=== PATIENT | male | born 1985 | race Caucasian/White ===

== ENCOUNTER 2020-07-30 02:56 | Outpatient (CLI) | payer OTHER, SELFPAY ==
[2020-08-01 13:27] LABS: Syphilis Total Ab w/Reflex Nonreactive (Nonreactive)
[2020-08-01 15:07] LABS: HIV-1/2 Ag & Ab Screen Negative (Negative)
[2020-08-02 07:28] LABS: Chlamydia amplified RNA Negative (Negative); N gonorrhoeae amplified RNA Negative (Negative); Source URINE
[2020-08-14 14:59] LABS: Hepatitis B Surface Ag Negative (Negative); Hepatitis C Ab w Rflx HCV PCR Negative (Negative)
== END 2020-07-30 03:16 ==
PROVIDERS: PCP Nurse Practitioner Family; Visit Provider Obstetrics & Gynecology Reproductive Endocrinology
DX: Z11.3 Encounter for screening for infections with a predominantly sexual mode of transmission (principal)
CPT/HCPCS: 36415; 86803; 87340; 87389; 87491; 87591; 86592; 86704; 86780

== ENCOUNTER 2020-08-18 10:21 | Outpatient (CLI) | payer OTHER, SELFPAY ==
[2020-08-19 23:27] LABS: COVID-19 RT-PCR Result NEGATIVE (Negative)
== END 2020-08-18 10:41 ==
PROVIDERS: PCP Nurse Practitioner Family; Visit Provider Obstetrics & Gynecology Reproductive Endocrinology
DX: Z11.59 Encounter for screening for other viral diseases (principal); Z01.818 Encounter for other preprocedural examination
CPT/HCPCS: U0003

== ENCOUNTER 2025-04-15 20:18 | Emergency (ER) | payer BC, SELFPAY ==
[2025-04-15 20:35] VITALS: BP 155/87; PULSE 70; RESP 16; TEMP 37; O2SAT 95
--- NOTE | 2025-04-15 21:07 | DI.RAD_ITS ---
Exam(s) XR KNEE LT 4V AP,LAT,JOHNNY,PAT EXAM: XR KNEE LT 4V AP,LAT,JOHNNY,PAT CLINICAL HISTORY: L knee pain, lateral. TECHNIQUE: 2D digital imaging was performed of the left knee. Four images were obtained. Merchant,AP, lateral and PA tunnel views were obtained. COMPARISON: There are no priors for comparison. FINDINGS: BONES: No acute fracture is present. No bony destructive lesion is seen. JOINTS: The knee is normally aligned. There is a small joint effusion. No loose body. SOFT TISSUE: Normal. IMPRESSION: 1. There is no acute fracture or dislocation. 2. Small joint effusion. 3. The preliminary [facility] report was reviewed. DATA REPOSITORY: RADIATION DOSE DELIVERED:
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
--- NOTE | 2025-04-15 22:35 | DI.[facility]_ITS ---
PROCEDURE INFORMATION: Exam: XR Left Knee Exam date and time: 04/15/2025 9:18 PM Age: 39 years old Clinical indication: Other: L knee pain, lateral TECHNIQUE: Imaging protocol: Radiologic exam of the left knee. Views: 4 or more views. COMPARISON: No relevant prior studies available. FINDINGS: Bones/joints: No suspicious osseous lytic or blastic lesion. No discrete or displaced fracture. No joint dislocation. No large joint effusion. Soft tissues: No focal abnormality. IMPRESSION: No acute fracture or dislocation. Dictated and Authenticated by: Christopher Anderson MD. Orderin Ivan Galarza MD
[2025-04-15 22:50] VITALS: PULSE 86; RESP 18; O2SAT 94
--- NOTE | 2025-04-16 11:05 | NUR.NOTE ---
Nursing Note: Accessed patient chart to print demographics sheet for surgi-care
== END 2025-04-15 22:58 | disposition home or self-care (01) ==
PROVIDERS: Emergency Provider Nurse Practitioner Family
DX: M25.561 Pain in right knee (principal); M25.461 Effusion, right knee
CPT/HCPCS: 99283; 73564

== ENCOUNTER 2025-05-29 15:56 | Outpatient (REF) | payer BC, SELFPAY ==
[2025-05-29 15:05] LABS: Abs Immature Grans 0.03 10^3/uL (0.0-0.06); HCT 45.1 % (40.0-50.0); HGB 15.2 g/dL (13.5-17.5); Immature Grans % 0.5 %; MCH 28.7 pg (27.0-33.0); MCHC 33.7 % (32.0-36.0); MCV 85 fL (80-95); MPV 10.4 fL (8.0-11.0); Platelet Count 219 10^3/uL (130-400); RBC 5.30 10^6/uL (4.36-5.78); RDW 12.7 % (11.8-14.1); RDW-SD 39.0 fL; WBC 6.12 10^3/uL (4.4-10.8)
[2025-05-29 15:38] LABS: Hemoglobin A1C 5.4 % (<5.7)
[2025-05-29 18:13] LABS: ALT 31 U/L (16-63); AST 19 U/L (15-37); Albumin 4.3 g/dL (3.4-5.0); Alkaline Phosphatase 73 U/L (46-116); Anion Gap 8.2 mmol/L (3-11); BUN 17 mg/dL (7-18); Bilirubin, Total 0.4 mg/dL (0.2-1.0); CO2 27.8 mmol/L (21.0-32.0); Calcium 9.0 mg/dL (8.5-10.1); Calculated LDL 96 mg/dL (<100); Chloride 103 mmol/L (98-107); Cholesterol 161 mg/dL (<200); Estimated GFR 96.97 (mL/min/1.73m2); Glucose 98 mg/dL (74-106); HDL Cholesterol 56 mg/dL (>or=40); Potassium 4.6 mmol/L (3.5-5.1); Sodium 139 mmol/L (136-145); TSH 1.95 uIU/mL (0.36-3.74); Total Protein 7.3 g/dL (6.4-8.2); Triglyceride 45 mg/dL (<150)
== END 2025-05-29 15:57 | disposition home or self-care (01) ==
LOC: NCHCN 15:56
PROVIDERS: Visit Provider Family Medicine
DX: Z00.00 Encounter for general adult medical examination without abnormal findings (principal); Z13.1 Encounter for screening for diabetes mellitus; Z13.29 Encounter for screening for other suspected endocrine disorder; Z13.220 Encounter for screening for lipoid disorders
CPT/HCPCS: 80053; 80061; 83036; 84443; 85025

== ENCOUNTER 2025-06-05 03:34 | Outpatient (CLI) | payer BC, SELFPAY ==
--- NOTE | 2025-06-05 05:30 | DI.MRI_ITS ---
Exam(s) MR LOWER JOINT LT WO EXAM: MR LOWER JOINT LT WO CLINICAL HISTORY: PAIN,internal derangement lt knee,m239.2. TECHNIQUE: Multiplanar multisequence MRI was performed. COMPARISON: CR,XR XR KNEE LT 4V AP,LAT,JOHNNY,PAT from 04/15/2025 FINDINGS: BONES: There is no fracture or contusion pattern. JOINTS: Articular cartilage is unremarkable. There is a small amount of fluid in the joint space. TENDONS: Extensor mechanism: There is very mild hyperintense signal seen in the patellar tendon at its insertion onto the inferior patella. Medial retinaculum: Unremarkable. Lateral retinaculum: Unremarkable. Popliteus: Unremarkable. MUSCLES: Unremarkable. MENISCI: There is mild increased signal seen in the posterior medial aspect of the body of the medial meniscus which may represent a small tear. The lateral meniscus is unremarkable. SOFT TISSUES: Unremarkable. LIGAMENTS: Anterior Cruciate: There is an anterior cruciate ligament tear. Posterior Cruciate: Unremarkable. Medial Collateral:Unremarkable. Lateral Collateral: Unremarkable. OTHER: IMPRESSION: 1. There is a tear of the anterior cruciate ligament. 2. Findings suspicious for small tear of the posterior medial aspect of the body of the medial meniscus. 3. Question of mild tendinosis of the patellar tendon at its insertion onto the inferior patella. 4. No evidence of a fracture or contusion. DATA REPOSITORY:
== END 2025-06-05 03:54 ==
PROVIDERS: PCP Family Medicine; Visit Provider Student in an Organized Health Care Education/Training Program
DX: S83.512A Sprain of anterior cruciate ligament of left knee, initial encounter; X58.XXXA Exposure to other specified factors, initial encounter
CPT/HCPCS: 73721

== ENCOUNTER 2025-06-27 08:55 | Day surgery (SDC) | payer BC, SELFPAY ==
[2025-06-27] VITALS (35 sets, daily range): BP systolic 109–145; BP diastolic 67–90; PULSE 57–88; RESP 9–25; TEMP 36.3–37; O2SAT 91–98; BMI 31.6
--- NOTE | 2025-06-27 07:19 | ROE_ITS ---
Operative Note Operative Note PRE-OP DIAGNOSIS: Left knee: 1. ACL rupture 2. Medial meniscus tear PROCEDURE: Left knee: 1. ACL reconstruction, CPT #69917: Quadriceps allograft 2. Partial medial meniscectomy, CPT #79433 SURGEON: Boy Andrews [employer]ARHEAD MAINTENANCE SPECIALIST: Juan David Cuevas ANESTHESIA TYPE: Local By Surgeon, General LMA/ETT and Primary Nerve Block Refer to Anesthesia Record ESTIMATED BLOOD LOSS: 10 TOURNIQUET TIME: 0 COMPLICATIONS: None Patient was transported to: PACU Patient's condition: stable Implants: Arthrex ACL TightRope II RT and ABS with 8x12 mm cortical button QuadLink pre-sutured quadriceps allograft: 10.5 x68 mm Indications: Please see complete medical record for details. Findings: Exam under anesthesia: Full range of motion, grossly positive Gabriela, and positive pivot shift testing. Stable varus valgus Arthroscopic findings: Mild generalized synovitis. Mild medial compartment chondromalacia. Moderately sized posterior horn body medial meniscus junction white zone edge tearing fraying into the white-red zone at the junction. Intact lateral meniscus. Complete ACL midsubstance disruption. Intact PCL. Procedure Description: In the operating room, general anesthesia was induced. The patient was positioned supine on the operating room table. All bony prominences were well- padded. Preoperative antibiotics were administered. The knee was prepped and draped in the usual sterile fashion. The correct patient, procedure, and side of the procedure were all verified prior to incision. Exam under anesthesia was performed. Local anesthetic containing epinephrine was infiltrated about the planned anteromedial, anterolateral, lateral distal femoral, and pretibial surgery sites. The standard high and tight anterolateral and anteromedial portals were established and a complete diagnostic arthroscopy was performed with relevant findings detailed above. A passport cannula was inserted in both the anteromedial and anterolateral portals. The medial meniscus was carefully inspected, and not amenable to repair with the mostly white zone edge tearing fraying to the white and red zone at the junction did not have any real vertical or horizontal component. The torpedo shaver was used lightly in the posterior horn and meniscal body and a little bit more moderately at the junction deepest part of the tear to contour the frayed torn edges of meniscus to a nice stable margin. The remnant was probed and stable. In the intercondylar area, the ACL remnant was removed leaving enough footprint on the femur and tibia to localize anatomic socket placement. A small notchplasty was performed to allow proper visualization of the back wall. The graft was measured and prepared on the back table. The TightRope II BTB and TightRope II ABS adjustable-loop cortical suspensory fixation implants were loaded on QuadLink pre-sutured quadriceps allograft. The femoral and tibial ends each measured 10.5 and 10 mm. The graft was marked at 20 mm from each end. On the ABS side, the tensioning sutures were marked and a shuttle suture was added. The graft was manually tensioned and the construct did not demonstrate any elongation. The graft was then compressed in a graft tube and covered with vancomycin soaked sponges. The femoral guide was then placed through the anterolateral portal carefully targeting the appropriate anatomic ACL origin. The outer 9 mm diameter of the guide was positioned anatomically with appropriate space between the proximal and posterior articular margins. On the lateral thigh, drill guide position and angle adjusted to about 60 degree angle to the longitudinal axis of the femur in the coronal plane and 20 degree angle to the trans-epicondylar axis in the axial plane to create the most optimal femoral socket. Knife and snap were used to open the skin and IT band and placed the drill guide on bone while maintaining appropriate position on the lateral wall. The tunnel length was noted to be used for marking and passing the femoral button. The flip cutter was then drilled to the appropriate location. The drill guide malleted 7 mm into the cortex. The remainder of the targeting guide removed. The FlipCutter was deployed to 10.5 mm and retrograde reaming done to a depth of 25 mm. Bony debr is was removed with the shaver. The flip cutter was then closed, withdrawn, and a FiberSnare used to pass a #2 FiberWire shuttle stitch, which was withdrawn out the anterolateral portal. The tibial guide was then used to target the anatomic ACL insertion through the anteromedial portal. The drill angle adjusted to 57.5 degrees and a pretibial incision made. The drill guide was placed on bone, tunnel length noted, and the flip cutter drilled to the appropriate location. The drill guide malleted 7 mm into the cortex. The remainder of the targeting guide removed. The FlipCutter was deployed to 10mm and retrograde reaming done to a depth of 35 mm. Bony debris was removed with the shaver. The flip cutter was then closed, withdrawn, and a FiberSnare used to pass a #2 FiberWire shuttle stitch, which was withdrawn out the anteromedial portal. The mechanical shaver was used to remove bone debris as well as chamfer and remove soft tissue from the edges of the sockets. A femoral shuttle sutures were withdrawn out the anterior medial portal. The PassPort was removed. This portal dilated to accommodate the graft size. The graft was brought over to the knee and the femoral sutures shuttled out the lateral thigh and advanced until the button was near the far cortex. Under arthroscopic visualization with the knee slightly hyperflexed, and the button was then passed and flipped on the far cortex. Counter traction was then maintained on the tibial side of the graft while it was carefully advanced into the knee and then about 15 mm into the femoral socket. The tibial sutures were then shuttled through the tibial tunnel and passing stitch removed while carefully noting the tensioning stitches. The graft was then dunked about 15 mm into the tibial socket. 8 x 12 mm ABS button was then loaded to the ABS loop and tension sutures used to bring the cortical button down to bone. The graft was advanced and then provisionally tensioned on both the femoral and tibial sides. The knee was then cycled 22 times, tensioning rechecked, and final tightening done with the knee in full extension with a moderate reverse Gabriela maintained. The graft position and tension were appropriate. There was no impingement in full extension. Gabriela exam was rockstable. Femoral passing sutures were removed. Backup knots were then tied on both sides and suture tails cut. The knee and all portals were copiously irrigated and then knee drained of arthroscopic fluid. 3-0 Monocryl was used to close the portals and small incisions in a buried interrupted fashion. Mastisol, Steri-Strips, Xeroform, 4 x 4 gauze, and sterile soft roll was applied. The extremity was wrapped gently with an Jason bandage. A soft knee immobilizer placed. The patient awoke from anesthesia without complication and was transferred to the recovery room in a stable condition. Date of Procedure: 06/27/25
--- NOTE | 2025-06-27 07:24 | PDOC.DSDIS_ITS ---
Date of service: 06/27/25 Discharge Plan Disposition Patient Disposition: Home Condition: Stable Discharge Details Attending Provider: Boy Andrews Primary Care Provider: Abel Keith Home Meds and New Rx's Prescriptions: New aspirin 81 mg tablet,delayed release (DR/EC) 81 mg PO DAILY 14 Days Qty: 14 0RF naproxen 250 mg tablet 250 - 500 mg PO BID PRN (Reason: Moderate pain) Qty: 40 0RF oxycodone 5 mg tablet 5 - 10 mg PO Q4H PRN (Reason: Moderate to severe pain) Qty: 18 0RF Discharge Instructions Additional Instructions: Surgery: Left knee arthroscopy with ACL reconstruction (quadriceps allograft) and partial medial meniscectomy 06/27/2025 Activity: Weightbearing as tolerated. No brace or crutches needed as soon as comfortable and stable on knee. Restore full knee extension as soon as possible. Perform early quad sets/quadriceps isometrics. Gradually increase flexion to full. Recommend elevation to minimize swelling discomfort. Encourage ankle pumps and wiggle toes to improve circulation. A physical therapy prescription will be sent electronically to begin in 3 weeks. Avoid sports activities for about 9+ months. Prescriptions: Aspirin 81 mg take 1 daily to prevent a blood clot for 14 days Naproxen 250 mg take 1-2 every 12 hours with a meal as needed for moderate pain Oxycodone 5 mg take 1-2 every 4-6 hours as needed for severe pain You may use [id number] Tylenol (acetaminophen) as needed for mild pain. These pain medications may be taken all at once or in different combinations as needed. Also, recommend Colace (docusate) as a stool softener as surgery and pain medicine cause constipation. You may try shyn-sil-cifshpe diphenhydramine (Benadryl) 25-50 mg nightly as a sleep aid Dressings: Leave dressing in place for 3 days. May then remove and leave open to air or cover incisions with Band-Aids. Leave the sticky Steri-Strips in place until they fall off or remove them after you shower. May shower after 5 days. Follow-up: 10-[address] Andrews You may take off the leg compression stockings this evening at home. You may also leave them on a few days longer if you have a history of leg swelling or edema. Let us know right away if you develop any redness, drainage, fevers, chest pain, or trouble breathing. Do not drink alcohol or drive for at least 24 hours after anesthesia. Please call the office during business hours with any questions or concerns. Stand Alone Forms: Anesthesia Discharge Inst., Anes.Nerve Block Instructions, Lisa Gomez (DSU) Referrals: Boy Andrews MD [ [facility] STAFF PHYSICIAN, Orthopaedic Surgical] - 07/09/25 8:15 am Discharge Orders Discharge Orders: Discharge Order (Routine); Ordered 06/27/25 Ordered By: Juan David Cuevas DS: Diagnosis Discharge Diagnosis (1) Left ACL tear: Status: Acute (2) Acute medial meniscus tear of left knee: Status: Acute
--- NOTE | 2025-06-27 10:04 | ANES.PREOP_ITS ---
General Info Date of Service Date Performed: 06/27/25 Height: 5 ft 7 in Weight: 91.7 kg Body Mass Index (BMI): 31.6 Surgical Procedure: Operation Date: 06/27/25 10:40 Proposed Procedure Side Surgeon p Knee ACL Reconstruction (Allograft), Medial Meniscus Repair VS Partial Medial Meniscectomy Left Boy Andrews MD Meds Allergies and Home Medications Allergies Allergy/AdvReac Type Severity Reaction Status Date / Time lobster Allergy Severe GI Verified 06/27/25 09:09 Home Medication ?Medication ?Instructions ?Recorded Unknown [No Known Home Meds] 06/11/25 Current Visit Medications: Current Medications Generic Name Dose Route Start Last Admin Trade Name Freq PRN Reason Stop Dose Admin Ringer's Solution 1,000 mls @ 30 mls/hr 06/27/25 06:00 IV 06/27/25 23:59 INFUSION ALEX Cefazolin Sodium/Dextrose 2 gm in 50 mls @ 100 mls/hr 06/27/25 06:00 Ancef Duplex IVPB 06/27/25 23:59 PREOP ALEX Tranexamic Acid/Sodium Chloride 1,000 mg in 100 mls @ 600 mls/hr 06/27/25 06:00 IVPB 06/27/25 23:59 PREOP ALEX IV Miscellaneous Supplies 1 each 06/27/25 06:00 Iv Access IV 06/27/25 23:59 DIRECTED ALEX Oxycodone HCl 0 mg 06/27/25 07:21 Oxycodone 5 Mg Tab PO 07/27/25 07:20 Q3H PRN PRN Pain Sodium Chloride 0 ml 06/27/25 06:00 Normal Saline Flush 10 Ml Syr IV 06/27/25 23:59 PRN PRN Sodium Chloride 0 ml 06/27/25 06:00 Normal Saline 10 Ml Vial IJ 06/27/25 23:59 DIRECTED PRN Sterile Water 0 ml 06/27/25 06:00 Water,Injection,Sterile 10 Ml Vial IJ 06/27/25 23:59 DIRECTED PRN PFSH Active Problems Active Problems: Problem Status Onset Code Acute medial meniscus tear of left knee Acute S83.242A Left ACL tear Acute S83.512A Internal derangement of left knee Acute 04/13/25 M23.92 Medical History Medical History GERD (gastroesophageal reflux disease) Surgical History Surgical History History of hernia repair inguinal H/O esophagogastroduodenoscopy Tobacco Smoking/Tobacco Use Status: Never Alcohol Alcohol Intake: current Alcohol intake frequency: 3 or more drinks per day Alcohol type: hard liquor and other Substance Use Substance use: Never Substance use type: does not use Vital Signs and Lab Results Vital Signs Most Recent Vital Signs in EMR: Most Recent Vital Signs Temp Pulse Resp BP Pulse Ox 37.0 C 63 16 145/89 H 98 06/27/25 09:16 06/27/25 09:16 06/27/25 09:16 06/27/25 09:16 06/27/25 09:16 Lab Results Complete Blood Count: WBC, (4.4-10.8) 6.12 10^3/uL 05/29/25, 09:15 RBC, (4.36-5.78) 5.30 10^6/uL 05/29/25, 09:15 Hgb, (13.5-17.5) 15.2 g/dL 05/29/25, 09:15 Hct, (40.0-50.0) 45.1 % 05/29/25, 09:15 Plt Count, (130-400) 219 10^3/uL 05/29/25, 09:15 Complete Metabolic Panel: Sodium, (136-145) 139 mmol/L 05/29/25, 09:15 Potassium, (3.5-5.1) 4.6 mmol/L 05/29/25, 09:15 Chloride, (98-107) 103 mmol/L 05/29/25, 09:15 Carbon Dioxide, (21.0-32.0) 27.8 mmol/L 05/29/25, 09 :15 BUN, (7-18) 17 mg/dL 05/29/25, 09:15 Creatinine, (0.70-1.30) 1.0 mg/dL 05/29/25, 09:15 Est GFR (CKD-EPI 2020), (mL/min/1.73m2) 96.97 05/29/25, 09:15 Calcium, (8.5-10.1) 9.0 mg/dL 05/29/25, 09:15 Albumin, (3.4-5.0) 4.3 g/dL 05/29/25, 09:15 Glucose, (74-106) 98 mg/dL 05/29/25, 09:15 Hemoglobin A1c, (<5.7) 5.4 % 05/29/25, 09:15 Liver Function Panel: ALT, (16-63) 31 U/L 05/29/25, 09:15 AST, (15-37) 19 U/L 05/29/25, 09:15 Thyroid Panel: TSH, (0.36-3.74) 1.95 uIU/mL 05/29/25, 09:15 Anesthesia Assessment and Plan Anesthesia History Personal History: No History of Anesthesia Complications Family History: No Family History of Anesthesia Complications Exercise Tolerance Exercise Tolerance: Metabolic Equivalents>4 Pertinent Negatives Pertinent Negatives: No Symptoms of GERD Cardiac & Pulmonary Exam Cardiac Exam: Normal S1/S2 Heart Sounds Pulmonary Exam: Clear Bilateral Breath Sounds Implantable Cardiac Device Does patient have a Pacemaker or an ICD?: No Airway Exam Known Difficult Airway: No Mallampati Class: 2 Mouth Opening: Normal (> 3cm) Thyromental Distance: Greater than 3 cm Neck Range of Motion: Full ROM Neck Circumference: Normal Teeth Condition: Normal Dentition ASA Classification ASA Score: ASA 2 Emergency Case?: No NPO Status NPO Status: NPO Clears >2 hours, Solids >8 hours Anesthesia Plan Resuscitation Status: Full Code Anesthesia Technique: General Anesthesia Airway Planned: Endotracheal Tube Pain Management: Surgeon and patient request nerve block Monitors Used: Standard Monitors
[2025-06-27] MEDS: Lactated Ringers 1,000 ML 30 ML IV (10:19)
--- NOTE | 2025-06-27 10:50 | W.ANESNERVE ---
Nerve Block Single Injection Procedure Date and Time Date Performed: 06/27/25 Procedure Start: 10:27 Location Where Procedure Performed Procedure Location: Day Surgery Unit Reason Performed: Postoperative Analgesia Requesting Provider: Boy Andrews Timeout Performed Timeout Performed: Yes Monitoring Used ECG, Blood Pressure, SpO2 and See EMR for corresponding vital signs Sterility Sterility: Hand Hygiene, Surgical Cap, Surgical Mask, Sterile Gloves, Sterile Drape/Sheet and Chlorhexidine Sedation Given During Procedure Sedation Given (Indicate Dose Given): Versed IV Dose:: 2mg Patient Mental Status Patient Mental Status: Awake Nerve Block 1st Nerve Block: Laterality: Left Block Type: Adductor Canal Ultrasound Image Saved?: Yes Needle / Catheter Used: 100mm SonoPlex II Local Anesthetic Bolus (Indicate Dose Given): Lidocaine used for local infiltration of skin, Injected in 3-5ml increments after negative blood aspiration, Bupivacaine 0.5% Dose:: 10ml and Exparel Dose:: 10ml Additives (Indicate Dose Given): None Ultrasound: Sterile probe cover and gel used Nerve Stimulator: Supplement to Ultrasound use and No twitch or parasthesia noted < 0.5 mA Paresthesia: None Procedure Tolerated: No Complications and Patient tolerated well Procedure Outcome: Successful Procedure Comment: Pt. nervous, block straight forward. Performed By: Christopher Soriano
[2025-06-27] MEDS: ceFAZolin 2 GM/50 ML BAG IVPB (11:15)
[2025-06-27] MEDS: TRANEXAMIC ACID/SOD. CHL. 1,000 MG/100 ML BAG 600 MG IVPB (11:16)
[2025-06-27] MEDS: EPINEPHrine 10 MG/10 ML ML (12:00)
[2025-06-27] MEDS: Vancomycin 1,000 MG VIAL 1000 MG (12:23)
[2025-06-27] MEDS: Bupivacaine 0.25% Pres-Free W/EPI 30 ML VIAL (12:23)
[2025-06-27] MEDS: fentaNYL 100 MCG/2 ML VIAL IVP ×2 (14:06→14:21)
--- NOTE | 2025-06-27 14:30 | W.ANESPOSTOP ---
Postoperative Evaluation Date, Time and Location Date Performed: 06/27/25 Time Performed: 14:31 Patient Location: PACU Vital Signs Most Recent Imported Vital Signs: Most Recent Vital Signs Temp Pulse Resp BP Pulse Ox 36.6 C 61 17 138/84 96 06/27/25 13:56 06/27/25 14:21 06/27/25 14:21 06/27/25 14:21 06/27/25 14:21 Pain Score Most Recent Pain Score: Most Recent Pain Score Pain Level 3 06/27/25 14:29 Assessment Mental Status: Awake (Alert & Oriented to Patient Baseline) Airway and Respiratory Function: Patent airway with normal (patient baseline) respiratory exam Cardiovascular Function: Hemodynamically Stable Hydration Status: Adequately Hydrated Nausea & Vomiting: No Nausea or Vomiting Pain: Pain is tolerable per patient Peripheral Nerve Block: Regional nerve block not resolved at time of post operative discharge
== END 2025-06-27 16:33 | disposition home or self-care (01) ==
LOC: SUR 08:55
PROVIDERS: PCP Family Medicine; Visit Provider Student in an Organized Health Care Education/Training Program
PROC: (CPT 29888; principal; 2025-06-27 10:30)
DX: S83.512A Sprain of anterior cruciate ligament of left knee, initial encounter (principal); S83.242A Other tear of medial meniscus, current injury, left knee, initial encounter; X58.XXXA Exposure to other specified factors, initial encounter; G89.18 Other acute postprocedural pain
CPT/HCPCS: 29888; 29881; 64447; J0131; J0665; J0666; J0690; J2003; J2250; J2704; J3010; J3373